=== PATIENT | male | born 1950 | race Asian ===

== ENCOUNTER → 2018-01-04 | Outpatient (CLI) | payer MEDICARE, OTHER | END | disposition home or self-care (01) | LOC: RADPV 10:43 | PROVIDERS: ATTEND Orthopaedic Surgery Hand Surgery | DX: Z47.1 Aftercare following joint replacement surgery (principal); M19.032 Primary osteoarthritis, left wrist; M25.512 Pain in left shoulder; M79.89 Other specified soft tissue disorders ==

== ENCOUNTER → 2018-02-07 | Outpatient (CLI) | payer MEDICARE, OTHER | END | disposition home or self-care (01) | LOC: RADPV 07:49 | PROVIDERS: ATTEND Orthopaedic Surgery Hand Surgery | DX: Z47.1 Aftercare following joint replacement surgery (principal); Z96.612 Presence of left artificial shoulder joint ==

== ENCOUNTER → 2018-11-09 | Outpatient (CLI) | payer MEDICARE, OTHER | END | disposition home or self-care (01) | LOC: RADPV 10:33 | DX: M19.071 Primary osteoarthritis, right ankle and foot (principal); M20.21 Hallux rigidus, right foot; M20.41 Other hammer toe(s) (acquired), right foot ==